=== PATIENT | female | born 1965 | race Caucasian/White ===

== ENCOUNTER 2018-07-18 10:37 | Day surgery (SDC) | payer MEDICAID ==
[~2018-07-18 10:37] MED LIST: DEXAMETHASONE 4 MG/ML 1 ML INJ; ONDANSETRON 4 MG INJ; ROCURONIUM 50 MG INJ
[2018-07-18] MEDS ORDERED: SOD CHLORIDE 0.9% 1,000 ML IV (11:00)
[2018-07-18] MEDS ORDERED: CEFAZOLIN 1 GM/50 ML (PMX) 50 ML IVPB (11:00)
[2018-07-18] MEDS ORDERED: PROPOFOL 100 ML (11:35)
[2018-07-18] MEDS ORDERED: CEFAZOLIN 1 GM INJ (12:03)
[2018-07-18] MEDS: BUPIVACAINE 0.5% (SDV) 30 ML INJ (12:14)
[2018-07-18] MEDS ORDERED: SUGAMMADEX SODIUM 200 MG/2 ML VIAL IV (12:43)
[2018-07-18] MEDS ORDERED: LIDOCAINE 2% (SDV) 5 ML INJ (12:44)
[2018-07-18] MEDS ORDERED: ALBUTEROL 0.083% (NEB) 2.5 MG/3 ML AMP HHN (13:30)
[2018-07-18] MEDS ORDERED: MEPERIDINE 25 MG INJ IV (13:30)
[2018-07-18] MEDS ORDERED: KETOROLAC 30 MG INJ IV (13:30)
[2018-07-18] MEDS ORDERED: hydrALAzine 20 MG INJ IV (13:30)
[2018-07-18] MEDS ORDERED: FENTAnyl 50 MCG/ML VIAL IV ×3 (13:30)
[2018-07-18] MEDS ORDERED: METOCLOPRAMIDE 10 MG INJ IV (13:30)
[2018-07-18] MEDS ORDERED: EPHEDrine SULFATE 50 MG/5 ML SYG IV (13:30)
[2018-07-18] MEDS ORDERED: ONDANSETRON 4 MG INJ IV (13:30)
[2018-07-18] MEDS ORDERED: DIPHENHYDRAMINE 50 MG INJ IV (13:30)
[2018-07-18] MEDS ORDERED: LABETALOL HCL 20MG INJ IV (13:30)
[2018-07-18] MEDS ORDERED: OXYCODONE/ACETAMINOPHEN (5/325) TAB PO ×2 (13:30)
[2018-07-20] MEDS ORDERED: INFLUENZA VIRUS VACCINE 0.5 ML (DISPENSING) IM* (09:00)
== END 2018-07-18 14:24 | disposition home or self-care (01) ==
LOC: SDS 10:37
DX: D24.1 Benign neoplasm of right breast (principal)
CPT/HCPCS: 19120; 84703; 88307; 93005